=== PATIENT | female | born 1975 | race Caucasian/White ===

== ENCOUNTER → 2021-01-24 | Day surgery (SDC) | payer BC ==
[~2021-01-24] MED LIST: GABA-586 PO; NAPR220C4 PO; PRED20TA PO
[2021-01-24 12:45] VITALS: BP 126/87
== END | disposition home or self-care (01) ==
LOC: SURG 12:22
PROVIDERS: ATTEND Anesthesiology
DX: M54.12 Radiculopathy, cervical region (principal); M79.18 Myalgia, other site; I10 Essential (primary) hypertension; F17.210 Nicotine dependence, cigarettes, uncomplicated; Z98.890 Other specified postprocedural states; Z79.899 Other long term (current) drug therapy
CPT/HCPCS: 99204; G0463

== ENCOUNTER → 2021-02-28 | Day surgery (SDC) | payer OTHER ==
[2021-02-28 13:39] VITALS: BP 135/88
== END | disposition home or self-care (01) ==
LOC: SURG 13:30
PROVIDERS: ATTEND Anesthesiology
DX: M54.50 Low back pain, unspecified (principal); M47.816 Spondylosis without myelopathy or radiculopathy, lumbar region; M54.12 Radiculopathy, cervical region; M79.18 Myalgia, other site; M46.1 Sacroiliitis, not elsewhere classified; I10 Essential (primary) hypertension; Z79.899 Other long term (current) drug therapy; Z91.013 Allergy to seafood; Z98.890 Other specified postprocedural states
CPT/HCPCS: 99214; G0463